=== PATIENT | female | born 1970 | race American Indian/Alaskan Native ===

== ENCOUNTER 2019-03-11 11:34 | Emergency (ER) | payer SELFPAY ==
[2019-03-11] MEDS ORDERED: NORMODYNE IV ONE (11:49)
--- NOTE | 2019-03-11 12:02 | Emergency Department Report ---
ED Abdominal Pain HPI - General Chief Complaint: Abdominal Pain Stated Complaint: VOMITING Time Seen by Provider: 03/11/19 11:47 Source: patient Mode of arrival: Wheelchair Limitations: No Limitations - History of Present Illness Initial Comments: 48-year-old female describes a relatively acute onset of lower abdominal pain. She states does not radiate to the back. It has improved. It was associated with nausea. The patient states she had 2 normal bowel movements since the pain began. She has had some nausea but no vomiting. She states she has experienced pain like this before. Her last menses was in December. She states she has not been sexually active and is probably menopausal. She has had no prior surgery and no prior episode of abdominal pain. She has not seen a physician in quite some time. She has no prior history of hypertension. Triage currently the patient was sweaty and hypertensive. However on replacement she is warm and dry with a normal blood pressure and in no distress. MD Complaint: abdominal pain -: hour(s) Location: suprapubic Radiation: none Migration to: no migration Severity: moderate Severity scale (0 -10): 7 Quality: aching Consistency: now resolved Improves With: nothing Worsens With: nothing Associated Symptoms: denies other symptoms, nausea - Related Data Previous Rx's Medication Instructions Recorded Last Taken Type traMADol [Ultram] 50 mg PO Q6HR PRN #10 tablet 03/11/19 Unknown Rx Allergies Allergy/AdvReac Type Severity Reaction Status Date / Time Penicillins Allergy Hives Verified 03/11/19 11:35 ED Review of Systems ROS: Stated complaint: VOMITING Other details as noted in HPI Constitutional: denies: chills, fever Eyes: denies: eye pain, eye discharge, vision change ENT: denies: ear pain, throat pain Respiratory: denies: cough, shortness of breath, wheezing Cardiovascular: denies: chest pain, palpitations Endocrine: no symptoms reported Gastrointestinal: abdominal pain, nausea. denies: vomiting, diarrhea, constipation, hematemesis, melena Genitourinary: denies: urgency, dysuria, discharge Musculoskeletal: denies: back pain, joint swelling, arthralgia Skin: denies: rash, lesions Neurological: denies: headache, weakness, paresthesias Psychiatric: denies: anxiety, depression Hematological/Lymphatic: denies: easy bleeding, easy bruising ED Past Medical Hx - Past Medical History Previous Medical History?: No - Surgical History Past Surgical History?: No - Social History Smoking Status: Never Smoker Substance Use Type: None - Medications Home Medications: Home Medications Medication Instructions Recorded Confirmed Last Taken Type traMADol [Ultram] 50 mg PO Q6HR PRN #10 tablet 03/11/19 Unknown Rx ED Physical Exam - General Limitations: No Limitations General appearance: alert, in no apparent distress - Head Head exam: Present: atraumatic, normocephalic - Eye Eye exam: Present: normal appearance. Absent: scleral icterus - ENT ENT exam: Present: mucous membranes moist - Neck Neck exam: Present: normal inspection. Absent: meningismus - Respiratory Respiratory exam: Present: normal lung sounds bilaterally. Absent: respiratory distress - Cardiovascular Cardiovascular Exam: Present: regular rate, normal rhythm. Absent: systolic murmur, diastolic murmur, rubs, gallop - GI/Abdominal GI/Abdominal exam: Present: soft, normal bowel sounds. Absent: distended, tenderness, guarding, rebound, rigid - Extremities Exam Extremities exam: Present: normal inspection - Back Exam Back exam: Present: normal inspection - Neurological Exam Neurological exam: Present: alert, oriented X3, CN II-XII intact. Absent: motor sensory deficit - Psychiatric Psychiatric exam: Present: normal affect, normal mood - Skin Skin exam: Present: warm, dry, intact, normal color. Absent: rash ED Course Vital Signs 03/11/19 03/11/19 03/11/19 11:40 11:54 12:32 Temperature 97.9 F Pulse Rate 90 66 67 Respiratory 24 18 16 Rate Blood Pressure 189/133 Blood Pressure 136/76 130/81 [Left] O2 Sat by Pulse 97 100 100 Oximetry ED Medical Decision Making - Lab Data Result diagrams: 03/11/19 11:54 03/11/19 11:54 Laboratory Results - last 24 hr 03/11/19 03/11/19 03/11/19 11:54 11:54 11:54 WBC 9.3 RBC 3.71 Hgb 10.7 Hct 32.8 MCV 88 MCH 29 MCHC 33 RDW 15.0 Plt Count 438 Lymph % (Auto) 28.0 [place] % (Auto) 8.4 H Eos % (Auto) 2.0 Baso % (Auto) 1.1 Lymph # 2.6 [place] # 0.8 Eos # 0.2 Baso # 0.1 Seg Neutrophils % 60.5 Seg Neutrophils # 5.6 PT 13.2 INR 1.03 APTT 36.7 H Sodium 144 Potassium 4.2 Chloride 107.6 H Carbon Dioxide 25 Anion Gap 16 BUN 15 Creatinine 0.7 Estimated GFR > 60 BUN/Creatinine Ratio 21 Glucose 97 Lactic Acid Calcium 9.2 Magnesium Total Bilirubin Direct Bilirubin Indirect Bilirubin AST ALT Alkaline Phosphatase Total Creatine Kinase 120 CK-MB (CK-2) < 1.0 CK-MB (CK-2) Rel Index 0.8 Troponin T NT-Pro-B Natriuret Pep Total Protein Albumin Albumin/Globulin Ratio Lipase HCG, Qual Blood Type Antibody Screen 03/11/19 03/11/19 03/11/19 11:54 11:54 11:54 WBC RBC Hgb Hct MCV MCH MCHC RDW Plt Count Lymph % (Auto) [place] % (Auto) Eos % (Auto) Baso % (Auto) Lymph # [place] # Eos # Baso # Seg Neutrophils % Seg Neutrophils # PT INR APTT Sodium Potassium Chloride Carbon Dioxide Anion Gap BUN Creatinine Estimated GFR BUN/Creatinine Ratio Glucose Lactic Acid 1.30 Calcium Magnesium 2.00 Total Bilirubin 0.20 Direct Bilirubin < 0.2 Indirect Bilirubin 0.0 AST 21 ALT 14 Alkaline Phosphatase 76 Total Creatine Kinase CK-MB (CK-2) CK-MB (CK-2) Rel Index Troponin T < 0.010 NT-Pro-B Natriuret Pep 418.1 Total Protein 7.1 Albumin 3.6 L Albumin/Globulin Ratio 1.0 Lipase 22 HCG, Qual Blood Type O POSITIVE Antibody Screen Negative 03/11/19 12:03 WBC RBC Hgb Hct MCV MCH MCHC RDW Plt Count Lymph % (Auto) [place] % (Auto) Eos % (Auto) Baso % (Auto) Lymph # [place] # Eos # Baso # Seg Neutrophils % Seg Neutrophils # PT INR APTT Sodium Potassium Chloride Carbon Dioxide Anion Gap BUN Creatinine Estimated GFR BUN/Creatinine Ratio Glucose Lactic Acid Calcium Magnesium Total Bilirubin Direct Bilirubin Indirect Bilirubin AST ALT Alkaline Phosphatase Total Creatine Kinase CK-MB (CK-2) CK-MB (CK-2) Rel Index Troponin T NT-Pro-B Natriuret Pep Total Protein Albumin Albumin/Globulin Ratio Lipase HCG, Qual Negative Blood Type Antibody Screen Laboratory Results - last 24 hr 03/11/19 03/11/19 03/11/19 11:54 11:54 11:54 WBC 9.3 RBC 3.71 Hgb 10.7 Hct 32.8 MCV 88 MCH 29 MCHC 33 RDW 15.0 Plt Count 438 Lymph % (Auto) 28.0 [place] % (Auto) 8.4 H Eos % (Auto) 2.0 Baso % (Auto) 1.1 Lymph # 2.6 [place] # 0.8 Eos # 0.2 Baso # 0.1 Seg Neutrophils % 60.5 Seg Neutrophils # 5.6 PT 13.2 INR 1.03 APTT 36.7 H Sodium 144 Potassium 4.2 Chloride 107.6 H Carbon Dioxide 25 Anion Gap 16 BUN 15 Creatinine 0.7 Estimated GFR > 60 BUN/Creatinine Ratio 21 Glucose 97 Lactic Acid Calcium 9.2 Magnesium Total Bilirubin Direct Bilirubin Indirect Bilirubin AST ALT Alkaline Phosphatase Total Creatine Kinase 120 CK-MB (CK-2) < 1.0 CK-MB (CK-2) Rel Index 0.8 Troponin T NT-Pro-B Natriuret Pep Total Protein Albumin Albumin/Globulin Ratio Lipase HCG, Qual Blood Type Antibody Screen 03/11/19 03/11/19 03/11/19 11:54 11:54 11:54 WBC RBC Hgb Hct MCV MCH MCHC RDW Plt Count Lymph % (Auto) [place] % (Auto) Eos % (Auto) Baso % (Auto) Lymph # [place] # Eos # Baso # Seg Neutrophils % Seg Neutrophils # PT INR APTT Sodium Potassium Chloride Carbon Dioxide Anion Gap BUN Creatinine Estimated GFR BUN/Creatinine Ratio Glucose Lactic Acid 1.30 Calcium Magnesium 2.00 Total Bilirubin 0.20 Direct Bilirubin < 0.2 Indirect Bilirubin 0.0 AST 21 ALT 14 Alkaline Phosphatase 76 Total Creatine Kinase CK-MB (CK-2) CK-MB (CK-2) Rel Index Troponin T < 0.010 NT-Pro-B Natriuret Pep 418.1 Total Protein 7.1 Albumin 3.6 L Albumin/Globulin Ratio 1.0 Lipase 22 HCG, Qual Blood Type O POSITIVE Antibody Screen Negative 03/11/19 12:03 WBC RBC Hgb Hct MCV MCH MCHC RDW Plt Count Lymph % (Auto) [place] % (Auto) Eos % (Auto) Baso % (Auto) Lymph # [place] # Eos # Baso # Seg Neutrophils % Seg Neutrophils # PT INR APTT Sodium Potassium Chloride Carbon Dioxide Anion Gap BUN Creatinine Estimated GFR BUN/Creatinine Ratio Glucose Lactic Acid Calcium Magnesium Total Bilirubin Direct Bilirubin Indirect Bilirubin AST ALT Alkaline Phosphatase Total Creatine Kinase CK-MB (CK-2) CK-MB (CK-2) Rel Index Troponin T NT-Pro-B Natriuret Pep Total Protein Albumin Albumin/Globulin Ratio Lipase HCG, Qual Negative Blood Type Antibody Screen Laboratory Results - last 24 hr 03/11/19 03/11/19 03/11/19 11:54 11:54 11:54 WBC 9.3 RBC 3.71 Hgb 10.7 Hct 32.8 MCV 88 MCH 29 MCHC 33 RDW 15.0 Plt Count 438 Lymph % (Auto) 28.0 [place] % (Auto) 8.4 H Eos % (Auto) 2.0 Baso % (Auto) 1.1 Lymph # 2.6 [place] # 0.8 Eos # 0.2 Baso # 0.1 Seg Neutrophils % 60.5 Seg Neutrophils # 5.6 PT 13.2 INR 1.03 APTT 36.7 H Sodium 144 Potassium 4.2 Chloride 107.6 H Carbon Dioxide 25 Anion Gap 16 BUN 15 Creatinine 0.7 Estimated GFR > 60 BUN/Creatinine Ratio 21 Glucose 97 Lactic Acid Calcium 9.2 Magnesium Total Bilirubin Direct Bilirubin Indirect Bilirubin AST ALT Alkaline Phosphatase Total Creatine Kinase 120 CK-MB (CK-2) < 1.0 CK-MB (CK-2) Rel Index 0.8 Troponin T NT-Pro-B Natriuret Pep Total Protein Albumin Albumin/Globulin Ratio Lipase HCG, Qual Urine Color Urine Turbidity Urine pH Ur Specific Marceline Urine Protein Urine Glucose (UA) Urine Ketones Urine Blood Urine Nitrite Urine Bilirubin Urine Urobilinogen Ur Leukocyte Esterase Urine WBC (Auto) Urine RBC (Auto) U Epithel Cells (Auto) Urine Mucus Urine Opiates Screen Urine Methadone Screen Ur Barbiturates Screen Ur Phencyclidine Scrn Ur Amphetamines Screen U Benzodiazepines Scrn Urine Cocaine Screen U Marijuana (THC) Screen Blood Type Antibody Screen 03/11/19 03/11/19 03/11/19 11:54 11:54 11:54 WBC RBC Hgb Hct MCV MCH MCHC RDW Plt Count Lymph % (Auto) [place] % (Auto) Eos % (Auto) Baso % (Auto) Lymph # [place] # Eos # Baso # Seg Neutrophils % Seg Neutrophils # PT INR APTT Sodium Potassium Chloride Carbon Dioxide Anion Gap BUN Creatinine Estimated GFR BUN/Creatinine Ratio Glucose Lactic Acid 1.30 Calcium Magnesium 2.00 Total Bilirubin 0.20 Direct Bilirubin < 0.2 Indirect Bilirubin 0.0 AST 21 ALT 14 Alkaline Phosphatase 76 Total Creatine Kinase CK-MB (CK-2) CK-MB (CK-2) Rel Index Troponin T < 0.010 NT-Pro-B Natriuret Pep 418.1 Total Protein 7.1 Albumin 3.6 L Albumin/Globulin Ratio 1.0 Lipase 22 HCG, Qual Urine Color Urine Turbidity Urine pH Ur Specific Marceline Urine Protein Urine Glucose (UA) Urine Ketones Urine Blood Urine Nitrite Urine Bilirubin Urine Urobilinogen Ur Leukocyte Esterase Urine WBC (Auto) Urine RBC (Auto) U Epithel Cells (Auto) Urine Mucus Urine Opiates Screen Urine Methadone Screen Ur Barbiturates Screen Ur Phencyclidine Scrn Ur Amphetamines Screen U Benzodiazepines Scrn Urine Cocaine Screen U Marijuana (THC) Screen Blood Type O POSITIVE Antibody Screen Negative 03/11/19 03/11/19 03/11/19 12:03 13:53 13:53 WBC RBC Hgb Hct MCV MCH MCHC RDW Plt Count Lymph % (Auto) [place] % (Auto) Eos % (Auto) Baso % (Auto) Lymph # [place] # Eos # Baso # Seg Neutrophils % Seg Neutrophils # PT INR APTT Sodium Potassium Chloride Carbon Dioxide Anion Gap BUN Creatinine Estimated GFR BUN/Creatinine Ratio Glucose Lactic Acid Calcium Magnesium Total Bilirubin Direct Bilirubin Indirect Bilirubin AST ALT Alkaline Phosphatase Total Creatine Kinase CK-MB (CK-2) CK-MB (CK-2) Rel Index Troponin T NT-Pro-B Natriuret Pep Total Protein Albumin Albumin/Globulin Ratio Lipase HCG, Qual Negative Urine Color Yellow Urine Turbidity Clear Urine pH 6.0 Ur Specific Marceline 1.014 Urine Protein <15 mg/dl Urine Glucose (UA) Neg Urine Ketones Neg Urine Blood Sm Urine Nitrite Neg Urine Bilirubin Neg Urine Urobilinogen < 2.0 Ur Leukocyte Esterase Neg Urine WBC (Auto) 1.0 Urine RBC (Auto) 3.0 U Epithel Cells (Auto) 1.0 Urine Mucus Few Urine Opiates Screen Presumptive negative Urine Methadone Screen Presumptive negative Ur Barbiturates Screen Presumptive negative Ur Phencyclidine Scrn Presumptive negative Ur Amphetamines Screen Presumptive negative U Benzodiazepines Scrn Presumptive negative Urine Cocaine Screen Presumptive negative U Marijuana (THC) Screen Presumptive positive Blood Type Antibody Screen - EKG Data -: EKG Interpreted by [facility] EKG shows normal: sinus rhythm, axis, intervals, QRS complexes, ST-T waves Rate: normal - EKG Data Interpretation: normal EKG - Radiology Data Radiology results: report reviewed FINDINGS: The uterus measures 8.7 x 3.5 x 3.3 cm. Endometrium is 5.3 mm thickness. It is heterogeneous with small echogenic area noted measuring 11 x 4 x 5 mm. There is no focal uterine mass seen. Uterus is retroflexed. The right ovary measures 1.7 x 1.2 x 1.1 cm. Left ovary measures 1.0 x 0.7 x 0.8 cm. There is blood flow to both ovaries. There is no abnormal adnexal mass seen. There is a small amount of free fluid in the cul-de-sac. IMPRESSION: Retroflexed uterus. There is a nonspecific small heterogeneous mildly echogenic area in the endometrium. I cannot exclude endometrial lesion/hyperplasia. Critical care attestation.: If time is entered above; I have spent that time in minutes in the direct care of this critically ill patient, excluding procedure time. 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 Return any acute change or problem. Prescriptions: traMADol [Ultram] 50 mg PO Q6HR PRN #10 tablet PRN Reason: Pain Referrals: CATHERINE SULLIVAN MD [Staff Physician] - 3-5 Days Time of Disposition: 15:30
[2019-03-11] MEDS ORDERED: MORPHINE IV ONE (12:22)
[2019-03-11] MEDS ORDERED: ZOFRAN IV ONE (12:22)
[2019-03-11 12:33] LABS: Basophils # (Auto) 0.1 K/mm3 (0.0-0.1); Basophils % (Auto) 1.1 % (0.0-1.8); Eosinophils # (Auto) 0.2 K/mm3 (0.0-0.4); Hematocrit 32.8 % (30.3-42.9); Hemoglobin 10.7 gm/dl (10.1-14.3); Lymphocytes # (Auto) 2.6 K/mm3 (1.2-5.4); Mean Corpuscular HGB Conc 33 % (30-34); Mean Corpuscular Volume 88 fl (79-97); Monocytes # (Auto) 0.8 K/mm3 (0.0-0.8); Monocytes % (Auto) 8.4 % (0.0-7.3); Platelet Count 438 K/mm3 (140-440); Red Blood Count 3.71 M/mm3 (3.65-5.03)
[2019-03-11 12:39] LABS: BUN/Creatinine Ratio 21; Blood Urea Nitrogen 15 mg/dL (7-17); Calcium 9.2 mg/dL (8.4-10.2); Hemolysis Index 0
[2019-03-11 12:40] LABS: Alanine Aminotransferase 14 units/L (7-56); Albumin 3.6 g/dL (3.9-5)
[2019-03-11 12:41] LABS: Bilirubin,Direct < 0.2 mg/dL (0-0.2); Creatine Kinase MB < 1.0 ng/mL (0.0-4.0)
[2019-03-11 12:44] LABS: INR 1.03 (0.87-1.13)
[2019-03-11 12:45] LABS: Partial Thromboplastin Time 36.7 Sec. (24.2-36.6)
--- NOTE | 2019-03-11 13:33 | XRay Report ---
PROCEDURE: XR CHEST 1V AP TECHNIQUE: Chest radiograph single view. HISTORY: hypertension FINDINGS: Frontal view of the chest was acquired. The heart is normal in size. The lungs appear clear . The pleura and mediastinum are within normal limits. IMPRESSION: No active disease in the chest This document is electronically signed by Robbin Fountain MD., March 11 2019 01:31:25 PM ET
--- NOTE | 2019-03-11 14:33 | Ultrasound Report ---
PROCEDURE: US PELVIC COMPLETE TECHNIQUE: Transabdominal and transvaginal pelvic ultrasound HISTORY: lower abd pain COMPARISON: None FINDINGS: The uterus measures 8.7 x 3.5 x 3.3 cm. Endometrium is 5.3 mm thickness. It is heterogeneous with sma ll echogenic area noted measuring 11 x 4 x 5 mm. There is no focal uterine mass seen. Uterus is retroflexed. The right ovary measures 1.7 x 1.2 x 1.1 cm. Left ovary measures 1.0 x 0.7 x 0.8 cm. There is blood flow to both ovaries. There is no abnormal adnexal mass seen. There is a small amount of free fluid in the cul-de-sac. IMPRESSION: Retroflexed uterus. There is a nonspecific small heterogeneous mildly echogenic area in the endometrium. I cannot exclude endometrial lesion/hyperplasia. This document is electronically signed by Yadi Wilhelm MD., March 11 2019 02:32:06 PM ET
[2019-03-11 14:48] LABS: Bilirubin,Urine NEG (Negative); Blood,Urine SM (Negative); Color,Urine Yellow (Yellow); Mucus,Urine FEW /HPF; Protein,Urine <15 mg/dL mg/dL (Negative); Urobilinogen,Urine < 2.0 mg/dL (<2.0)
[2019-03-11 14:58] LABS: Amphetamine Screen,Urine PRESUMPTIVE NEGATIVE; Benzodiazepines Screen,Urine PRESUMPTIVE NEGATIVE; Cocaine Screen,Urine PRESUMPTIVE NEGATIVE; Methadone Screen,Urine PRESUMPTIVE NEGATIVE; Opiate Screen,Urine PRESUMPTIVE NEGATIVE
[2019-03-11 15:10] LABS: Cannabinoid Screen,Urine PRESUMPTIVE POSITIVE
[2019-03-11 15:38] VITALS: BP 127/87
== END 2019-03-11 15:45 | disposition home or self-care (01) ==
LOC: ED 11:34
DX: N85.00 Endometrial hyperplasia, unspecified (principal); R10.30 Lower abdominal pain, unspecified; Z88.0 Allergy status to penicillin
CPT/HCPCS: 36415; 71045; 76830; 76856; 80048; 80076; 80307; 81001; 82140; 82550; 82553; 83690; 83735; 83880; 84484; 84703; 85025; 85610; 85730; 86850; 86900; 86901; 93005; 93010; 96374; 96375; 99284; J2270; J2405